=== PATIENT | male | born 1985 | race Two or more races ===

== ENCOUNTER 2023-03-04 16:49 | Emergency (ER) | payer MEDICAID ==
[~2023-03-04] VITALS: Ht 182.9 cm; Wt 100.0 kg
[2023-03-04 16:49] VITALS: BP 135/86
[2023-03-04] MEDS ORDERED: SODIUM CHLORIDE 0.9% 1,000 ML IVB ONE (17:15)
[2023-03-04 17:56] LABS: Mean Corpuscular Hemoglobin 34.1 pg (28.0-32.0); Neutrophils # (auto) 5.6 10 ^3/uL (1.6-8.6); Nucleated Red Blood Cells % 0.1 %; Red Cell Distribution Width 14.1 % (11.8-14.3)
[2023-03-04 17:58] LABS: Amphetamine Screen, Urine NEGATIVE (NEGATIVE); Barbiturate Scree,Urine NEGATIVE (NEGATIVE); Benzodiazephine Screen, Urine NEGATIVE (NEGATIVE); Cannabinoid Screen, Urine NEGATIVE (NEGATIVE); Cocaine Screen, Urine NEGATIVE (NEGATIVE); Opiate Scree,Urine NEGATIVE (NEGATIVE); Phencyclidine Screen, Urine NEGATIVE (NEGATIVE)
[2023-03-04 17:58] LABS: Basophils # (auto) 0.1 10 ^3/uL (0-0.2); Basophils % (auto) 0.7 % (0.0-2.0); Eosinophils # (auto) 0.2 10 ^3/uL (0-0.8); Eosinophils % (auto) 2.6 % (0.0-7.0); Hematocrit 45.5 % (41.0-53.0); Hemoglobin 15.8 g/dL (13.5-17.5); Lymphocytes # (auto) 2.4 10 ^3/uL (0.4-5.4); Lymphocytes % (auto) 26.9 % (10.0-50.0); Mean Corpuscular Hgb Conc. 34.8 g/dL (32.0-36.0); Mean Corpuscular Volume 98.1 fL (80.0-100.0); Monocytes # (auto) 0.6 10 ^3/uL (0-1.3); Monocytes % (auto) 7.1 % (0.0-12.0); Neutrophils % (auto) 62.7 % (37.0-80.0); Red Blood Cells 4.63 10^6/uL (4.5-5.90)
[2023-03-04 18:10] LABS: Albumin 4.2 g/dL (3.4-5.0); BUN/Creatinine Ratio 11.3 (10.0-20.0); Potassium 3.7 mmol/L (3.5-5.1)
[2023-03-04 18:12] LABS: Salicylate 2.7 mg/dL (2.8-20.0)
[2023-03-04 18:15] LABS: Bilirubin, Total 0.3 mg/dL (0.2-1.0); Total Protein 7.8 g/dL (6.4-8.2)
[2023-03-04 19:03] LABS: Acetaminophen < 2.0 ug/mL (10-30)
== END 2023-03-04 17:57 | disposition left against medical advice (07) ==
LOC: ER 16:49 → EDBD 16:49 → ER 17:57
DX: F10.129 Alcohol abuse with intoxication, unspecified (principal); R41.82 Altered mental status, unspecified; Z59.00 Homelessness unspecified; Y90.8 Blood alcohol level of 240 mg/100 ml or more
CPT/HCPCS: 36415; 80053; 80307; 80320; 80329; 85025; 99283; J7030